=== PATIENT | male | born 1970 | race African-American/Black ===

== ENCOUNTER 2016-11-13 20:46 | Emergency (ER) | payer MEDICAID, OTHER ==
[~2016-11-13] VITALS: Ht 185.4 cm; Wt 113.4 kg
[~2016-11-13 20:46] MED LIST: AMOXICILLIN500 MG ORAL; NORCO1 E1 ORAL
[2016-11-13 21:06] VITALS: BP 138/82
--- NOTE | 2016-11-13 21:41 | Emergency Room Report ---
History of Present Illness General Chief Complaint: General Complaint Source: Patient, Family Member Present Illness HPI This is a 46-year-old male with no past medical history. He presents with chief complaint of generalized weakness and fever. Onset this evening. Had collapse of vomiting. Speckled blood at the end of vomiting. No cough or congestion. No diarrhea. Never had this problem before. Denies any alcohol or drugs use. Allergies: Coded Allergies: IBUPROFEN (Verified Allergy, Unknown, 02/06/16) Patient History Past Medical History: none Past Surgical History: none Pertinent Family History: none Social History: Denies: smoking Immunizations: other Reviewed Nursing Documentation: PMH: Agreed, PSxH: Agreed Nursing Documentation-PMH Hx Hypertension: Yes Hx Asthma: Yes Review of Systems Constitutional: Reports: fever, malaise, weakness Eye: Denies: blurred vision, eye pain ENT: Denies: ear pain, nose congestion, throat swelling Respiratory: Denies: cough, shortness of breath Cardiovascular: Denies: chest pain, palpitations Gastrointestinal: Reports: nausea, vomiting Musculoskeletal: Denies: back pain, joint pain Skin: Denies: rash Neurological: Denies: headache, numbness Endocrine: Denies: increased thirst, increased urine Hematologic/Lymphatic: Denies: easy bruising All Other Systems: negative except mentioned in HPI Physical Exam Vital Signs Date Time Temp Pulse Resp B/P Pulse Ox O2 Delivery O2 Flow Rate FiO2 11/13/16 20:57 99.7 87 26 154/104 100 Room Air vitals with hypertension Sp02 EP Interpretation: reviewed, normal General Appearance: well appearing, no apparent distress, alert, other - ill appearing Head: normocephalic, atraumatic Eyes: bilateral eye EOMI, bilateral eye PERRL ENT: hearing grossly normal, normal pharynx Neck: full range of motion, supple, no meningismus Respiratory: chest non-tender, lungs clear, normal breath sounds Cardiovascular #1: regular rate, rhythm, no murmur Gastrointestinal: normal bowel sounds, non tender, no mass, no organomegaly, no bruit, non-distended Musculoskeletal: back normal, gait/station normal, normal range of motion Psychiatric: mood/affect normal Skin: warm/dry Medical Decision Making Diagnostic Impression: Primary Impression: Pyelonephritis Additional Impressions: Obesity (BMI 30.0-34.9) Amphetamine abuse ER Course Present with fever or back pain and vomiting. According to his , he was diagnosed with urinary tract infection and placed on antibiotics a couple weeks ago. He never filled it. Now with fever and back pain. This is concerning for possible pyelonephritis. Him a dose of antibiotics here. He is feeling better. No percussive tenderness. No midline tenderness. Doubt spinal epidural abscess, or neoplastic process or cauda equina syndrome. Lab Results Impression labs unremarkable EKG Diagnostic Results Rate: normal Rhythm: NSR ST Segments: no acute changes Rhythm Strip Diag. Results EP Interpretation: yes Rate: 65 Rhythm: NSR, no PVC's, no ectopy Chest X-Ray Diagnostic Results EP Interpretation: Yes Findings: no consolidation, no effusion, no pneumothorax, no acute cardiopulmonary disease Number of Views: 1 Last Vital Signs Date Time Temp Pulse Resp B/P Pulse Ox O2 Delivery O2 Flow Rate FiO2 11/13/16 20:57 99.7 87 26 154/104 100 Room Air Status: improved Disposition: HOME, SELF-CARE Condition: Stable Scripts Hydrocodone/Acetaminophen 5-325* (HYDROCODONE/ACETAMINOPHEN 5-325*) 1 Each Tablet 1 TAB ORAL Q6H Y for For Pain, #20 TAB 0 Refills Prov: MOLLY MADRID M.D. 11/13/16 Doxycycline Monohydrate* (DOXYCYCLINE MONOHYDRATE*) 100 Mg Capsule 100 MG ORAL Q12H, #14 CAP 0 Refills Prov: MOLLY MADRID M.D. 11/13/16 Additional Instructions: Followup with your DrChristopher in 2 to 3 days. Return for worsening symptoms. MOLLY MADRID M.D. Nov 13, 2016 21:41
[2016-11-13] MEDS ORDERED: Acetaminophen 500mg (ES) tab ORAL ONE (21:45)
[2016-11-13 21:52] LABS: BASOPHILS % (AUTO) 1.4 % (0.0-2.0); EOSINOPHILS % (AUTO) 0.9 % (0.0-3.0); LYMPHOCYTES % (AUTO) 25.8 % (20.0-45.0); MEAN CORPUSCULAR HEMOGLOBIN 24.7 PG (27.0-31.0); MEAN CORPUSCULAR HGB CONC 30.5 G/DL (32.0-36.0); MEAN CORPUSCULAR VOLUME 81 FL (80-99); MEAN PLATELET VOLUME 8.2 FL (6.5-10.1); MONOCYTES % (AUTO) 9.1 % (1.0-10.0); NEUTROPHILS % (AUTO) 62.8 % (45.0-75.0); PLATELET COUNT 237 K/UL (150-450); RED BLOOD COUNT 5.51 M/UL (4.70-6.10); RED CELL DISTRIBUTION WIDTH 11.7 % (11.6-14.8); WHITE BLOOD COUNT 10.8 K/UL (4.8-10.8)
[2016-11-13 22:15] LABS: ALANINE AMINOTRANSFERASE 12 U/L (3-41); ANION GAP 20 (5-15); ASPARTATE AMINO TRANSFERASE 16 U/L (5-40); CALCIUM 9.1 mg/dL (8.6-10.2); CARBON DIOXIDE 21 mEQ/L (20-30); CHLORIDE 96 mEQ/L (98-107); CREATININE 1.1 mg/dL (0.7-1.2); GLOMERULAR FILTRATION RATE > 60 mL/min (>60); POTASSIUM 3.7 mEQ/L (3.4-4.9); SODIUM 137 mEQ/L (135-145); TOTAL PROTEIN 7.5 g/dL (6.6-8.7)
[2016-11-13 22:16] LABS: ALBUMIN/GLOBULIN RATIO 1.4 (1.0-2.7); HEMOLYSIS 3; LIPASE 40 U/L (< 60)
[2016-11-13 22:19] LABS: REFLEX LACTIC ACID YES OR NO YES
[2016-11-13 22:26] LABS: CKMB < 1.5 ng/mL (< 6.7)
[2016-11-13 23:20] LABS: APPEARANCE,URINE CLOUDY; PROTEIN,URINE NEGATIVE (NEGATIVE)
[2016-11-13 23:21] LABS: KETONES,URINE 3+ (NEGATIVE); LEUKOCYTE ESTERASE ,URINE 3+ (NEGATIVE); NITRITE,URINE NEGATIVE (NEGATIVE); UROBILINOGEN,URINE NORMAL MG/DL (0.0-1.0)
[2016-11-13 23:22] LABS: BACTERIA,URINE MANY /HPF; RBC,URINE 15-20 /HPF (0 - 0); SQUAMOUS EPITHELIAL CELL,UR FEW /LPF (NONE/OCC); WBC,URINE 30-40 /HPF (0 - 0)
[2016-11-13] MEDS ORDERED: DOXYCYCLINE MO100 MG ORAL (23:28)
[2016-11-13] MEDS ORDERED: HYDROCODON-ACE1 EA15 ORAL (23:28)
[2016-11-13] MEDS ORDERED: cefTRIAXone 1 GM in NS 55 ML IVPB ONE (23:30)
[2016-11-13] MEDS ORDERED: HYDROmorphone 1mg/ml Carpuject IVP ONE (23:30)
[2016-11-13 23:35] VITALS: BP 137/81
[2016-11-14 00:07] VITALS: BP 130/66
[2016-11-14 00:08] VITALS: BP 130/66
--- NOTE | 2016-11-14 12:40 | Diagnostic Imaging Report ---
Indication: Chest pain Technique: One view of the chest Comparison: none Findings: Lungs and pleural spaces are clear. Heart size is normal. Impression: No acute process
--- NOTE | 2016-11-21 14:55 | Cardiology Report ---
APPROVED REPORT EKG Measurement Heart [id number] MD 132P41 [id number] Normal sinus rhythm with sinus arrhythmia Normal ECG
== END 2016-11-14 00:08 | disposition home or self-care (01) ==
LOC: EMR 21:39
DX: N12 Tubulo-interstitial nephritis, not specified as acute or chronic (principal); E66.9 Obesity, unspecified; Z68.33 Body mass index [BMI] 33.0-33.9, adult; J45.909 Unspecified asthma, uncomplicated; I10 Essential (primary) hypertension; Z88.6 Allergy status to analgesic agent; F15.10 Other stimulant abuse, uncomplicated
CPT/HCPCS: 36415; 71010; 80053; 80300; 81003; 82550; 82553; 83605; 83690; 85025; 86710; 87040; 87086; 93005; 96361; 96374; 96375; 99284; J0696; J1170; J2405

== ENCOUNTER 2017-02-19 15:58 | Emergency (ER) | payer MEDICAID ==
[~2017-02-19] VITALS: Ht 182.9 cm; Wt 104.3 kg
[~2017-02-19 15:58] MED LIST changes: +DOXYCYCLINE MO100 MG ORAL; +HYDROCODON-ACE1 EA15 ORAL
--- NOTE | 2017-02-19 16:20 | Emergency Room Report ---
History of Present Illness General Chief Complaint: Stroke Symptoms Source: Patient Present Illness HPI Patient's 46 show male presented after having increased right-sided facial numbness and weakness. This began approximately 2 weeks ago. Patient gradual onset of symptoms. Patient having associated tearing as well as difficulty closing his right eye. Patient had prior history of hypertension. He had not been compliant with medications. Allergies: Coded Allergies: IBUPROFEN (Verified Allergy, Unknown, 02/06/16) Patient History Past Medical History: see triage record Reviewed Nursing Documentation: PMH: Agreed, PSxH: Agreed Nursing Documentation-PMH Past Medical History: No History, Except For Hx Hypertension: Yes Hx Asthma: Yes Review of Systems All Other Systems: negative except mentioned in HPI Physical Exam Vital Signs Date Time Temp Pulse Resp B/P Pulse Ox O2 Delivery O2 Flow Rate FiO2 02/19/17 16:08 98.8 135 22 116/73 98 Room Air Sp02 EP Interpretation: reviewed, normal General Appearance: normal inspection, well appearing, no apparent distress, alert, GCS 15, non-toxic Head: atraumatic ENT: normal ENT inspection, hearing grossly normal, normal voice Neck: normal inspection, full range of motion, supple, no bony tend Respiratory: normal inspection, lungs clear, normal breath sounds, no respiratory distress, no retraction, no wheezing Cardiovascular #1: regular rate, rhythm, no edema Gastrointestinal: normal inspection, normal bowel sounds, non tender, soft, no guarding, no hernia Genitourinary: no CVA tenderness Musculoskeletal: normal inspection, back normal, normal range of motion Neurologic: normal inspection, alert, oriented x3, responsive, wet sander III-XII nml as tested, speech normal, motor weakness - right side of face with forehead slight involvement Psychiatric: normal inspection, judgement/insight normal, mood/affect normal Skin: normal inspection, normal color, no rash Medical Decision Making ER Course The patient presented for facial weakness. Differential diagnosis included wasn 't limited to abscess, stroke, intracranial hemorrhage, mass among others.Because of complexity of patient's case laboratory testing and imaging studies were ordered.CT imaging of the head was ordered due to patient's headache onset of symptoms. Last Vital Signs Date Time Temp Pulse Resp B/P Pulse Ox O2 Delivery O2 Flow Rate FiO2 02/19/17 16:08 98.8 135 22 116/73 98 Room Air Leonardo Crawley February 19, 2017 16:20
--- NOTE | 2017-02-19 16:27 | Diagnostic Imaging Report ---
Indication: Right-sided weakness Technique: Contiguous 5 mm thick transaxial imaging of the head obtained in a Siemens Sensation [address] scanner. Soft tissue and bone windows generated. Total Dose length Product (DLP): [address] Dose Index Volume (CTDIvol): 70.38 mGy Comparison: none Findings: The size and configuration of the cortical sulci, basal cisterns, and ventricles are within normal limits for age. There is no mass effect, midline shift, or edema identified. There is no evidence of acute hemorrhage or abnormal intra-axial or extra-axial fluid collections. The bones and soft tissues are unremarkable. Impression: No mass effect, edema or acute bleed. The CT scanner at [facility] is accredited by the [employer] and the scans are performed using dose optimization techniques as appropriate to a performed exam including Automatic Exposure control.
[2017-02-19] MEDS ORDERED: PREDNISONE20 MG ORAL (16:49)
[2017-02-19] MEDS ORDERED: ZOVIRAX800 MG ORAL (16:49)
[2017-02-19 17:36] VITALS: BP_SYST 116; BP_SYST 135; BP_DIAS 73; BP_DIAS 83
--- NOTE | 2017-02-20 14:25 | Cardiology Report ---
APPROVED REPORT EKG Measurement Heart [id number] [place] 130P56 [id number] Normal sinus rhythm Normal ECG
== END 2017-02-19 17:38 | disposition home or self-care (01) ==
LOC: EMR 16:55
DX: R29.810 Facial weakness (principal); I10 Essential (primary) hypertension; Z91.14 Patient's other noncompliance with medication regimen; J45.909 Unspecified asthma, uncomplicated; Z88.6 Allergy status to analgesic agent
CPT/HCPCS: 70450; 82962; 93005; 99284

== ENCOUNTER 2017-07-01 13:53 | Emergency (ER) | payer MEDICAID ==
[~2017-07-01] VITALS: Ht 185.4 cm; Wt 99.8 kg
[~2017-07-01 13:53] MED LIST changes: +PREDNISONE20 MG ORAL; +ZOVIRAX800 MG ORAL
[2017-07-01 13:56] VITALS: BP 158/96
--- NOTE | 2017-07-01 14:09 | Emergency Room Report ---
History of Present Illness General Chief Complaint: Back Pain-No Injury Source: Patient Present Illness HPI \\[facility] [employer] patient walk-in with 6 months right lower back pain. Sharp, worse with walking/moving. "Walk a lot" at work. Wears back brace Tearful, dramatic in ED States was tx for "UTI" in November, but ?if he took Abx Went to additional ER after that Nov visit here and was told then he has UTI as well Denies polyuria, dysuria, urinary discharge, fever/chills, abd pain, nausea/ vomiting Denies recent trauma Allergies: Coded Allergies: IBUPROFEN (Verified Allergy, Unknown, 02/06/16) Patient History Past Medical History: other - chronic LBP Nursing Documentation-PMH Hx Hypertension: Yes Physical Exam Vital Signs Date Time Temp Pulse Resp B/P (MAP) Pulse Ox O2 Delivery O2 Flow Rate FiO2 07/01/17 13:56 97.9 82 20 158/96 99 Room Air Medical Decision Making Diagnostic Impression: Primary Impression: Pyelonephritis ER Course Likely pyelo given right back pain, UA with multiple WBCs, LE chronic back pain but no recent exacerbating activity Analgesia provided and initial dose of Cipro BID for presumed pyelo VSS. Tolerating PO. Not septic/systemically ill currently - does not require IV abx, admission at this time PMD followup in 3-4 days, possible Urology referral if continued symptoms and/ or outpatient sono to check for uro/kidney abnormalities DC home Last Vital Signs Date Time Temp Pulse Resp B/P (MAP) Pulse Ox O2 Delivery O2 Flow Rate FiO2 07/01/17 13:56 97.9 82 20 158/96 99 Room Air Status: improved Disposition: HOME, SELF-CARE Scripts Ciprofloxacin Hcl* (CIPROFLOXACIN HCL*) 500 Mg Tablet 500 MG ORAL Q12H, #13 TAB 0 Refills Prov: TESSA CAMPOS M.D. 07/01/17 TESSA CAMPOS M.D. Jul 01, 2017 14:09
[2017-07-01 14:25] LABS: APPEARANCE,URINE SLIGHTLY CLOUDY; KETONES,URINE NEGATIVE (NEGATIVE); LEUKOCYTE ESTERASE ,URINE 3+ (NEGATIVE); NITRITE,URINE NEGATIVE (NEGATIVE); PH,URINE 8 (4.5-8.0); PROTEIN,URINE NEGATIVE (NEGATIVE); UROBILINOGEN,URINE 4 MG/DL (0.0-1.0)
[2017-07-01 14:35] LABS: AMORPHOUS SEDIMENT,UR MODERATE /LPF; BACTERIA,URINE FEW /HPF; SQUAMOUS EPITHELIAL CELL,UR OCCASIONAL /LPF (NONE/OCC)
[2017-07-01] MEDS ORDERED: CIPROFLOXACIN500 M2 ORAL (14:44)
[2017-07-01] MEDS ORDERED: Ciprofloxacin 500mg tab ORAL ONE (14:45)
[2017-07-01 14:53] VITALS: BP 147/92
== END 2017-07-01 14:53 | disposition home or self-care (01) ==
LOC: EMR 14:25
DX: N12 Tubulo-interstitial nephritis, not specified as acute or chronic (principal); I10 Essential (primary) hypertension; Z88.6 Allergy status to analgesic agent
CPT/HCPCS: 81003; 87086; 99284

== ENCOUNTER 2017-07-28 05:38 | Emergency (ER) | payer MEDICAID ==
[~2017-07-28] VITALS: Ht 185.4 cm; Wt 113.4 kg
[~2017-07-28 05:38] MED LIST changes: +CIPROFLOXACIN500 M2 ORAL
[2017-07-28 05:52] VITALS: BP 183/102
[2017-07-28] MEDS ORDERED: Morphine Sulfate 4mg/ml Inj IVP ONE (06:00)
[2017-07-28] MEDS ORDERED: Famotidine 20 MG/ 2ML VIAL IVP ONE (06:00)
--- NOTE | 2017-07-28 06:01 | Emergency Room Report ---
History of Present Illness General Chief Complaint: Abdominal Pain Source: Patient Present Illness HPI Patient presents with epigastric pain that severe. He has been vomiting. Was drinking coffee and vomited coffee back up but didn't see any coffee grounds or blood. He denies any melena. He's had this problem before. He drank some alcohol before this problem started tonight. Denies pancreatitis. He's had endoscopy done here which revealed gastritis according to him. Pain rated 9/10 , epigastric, some radiation to back, constant. No chest pain, cough, URI, joint pain, rashes, headache, dizziness. Feels hot flashes with vomiting, like fever, no doc temp. Was seen here twice for pyelonephritis once in November and the second time later in the year. It's questionable compliance with antibiotics at that time. Allergies: Coded Allergies: IBUPROFEN (Verified Allergy, Unknown, 02/06/16) Patient History Past Medical History: see triage record, old chart reviewed Social History: Reports: smoking, alcohol use, drug use - THC Social History Narrative With sig other Reviewed Nursing Documentation: PMH: Agreed, PSxH: Agreed Nursing Documentation-PMH Hx Hypertension: Yes Hx Asthma: Yes Review of Systems All Other Systems: negative except mentioned in HPI Physical Exam Vital Signs Date Time Temp Pulse Resp B/P (MAP) Pulse Ox O2 Delivery O2 Flow Rate FiO2 07/28/17 05:43 97.5 71 18 171/84 96 Room Air Sp02 EP Interpretation: reviewed, normal General Appearance: well appearing, GCS 15, mild distress Head: normocephalic Eyes: bilateral eye PERRL, bilateral eye Scleral Injection ENT: moist mucus membranes Neck: supple Respiratory: lungs clear, normal breath sounds Cardiovascular #1: regular rate, rhythm Cardiovascular #2: 2+ radial (R) Gastrointestinal: normal inspection, normal bowel sounds, no mass, non- distended, no guarding, no rebound, tenderness - epigastric Musculoskeletal: back normal, gait/station normal, normal range of motion Neurologic: alert, oriented x3, grossly normal Psychiatric: anxious Skin: normal inspection, warm/dry Medical Decision Making Diagnostic Impression: Primary Impression: Abdominal pain Qualified Codes: R10.13 - Epigastric pain Additional Impression: Vomiting Qualified Codes: R11.2 - Nausea with vomiting, unspecified ER Course Patient presents with epigastric pain after drinking coffee and alcohol. He is vomiting. Differential includes gastritis, GERD, peptic ulcer disease, pancreatitis, acute myocardial infarction amongst others. Evaluation of the EKG , chest x-ray abdominal films and labs. He received IV hydration, Pepcid, Zofran and morphine. EKG is normal sinus rhythm with a normal EKG. Labs with slight leukocytosis, normal lipase, lytes. Slight anemia. Films unremarkable. The patient is improved and is sleeping after medication. Tolerating PO without difficulty. Constellation most c/w gastritis. Patient stable for outpatient observation and treatment. Laboratory Tests Test 07/28/17 06:11 White Blood Count 13.4 K/UL (4.8-10.8) H Red Blood Count 4.45 M/UL (4.70-6.10) L Hemoglobin 11.4 G/DL (14.2-18.0) L Hematocrit 36.5 % (42.0-52.0) L Mean Corpuscular Volume 82 FL (80-99) Mean Corpuscular Hemoglobin 25.7 PG (27.0-31.0) L Mean Corpuscular Hemoglobin Concent 31.3 G/DL (32.0-36.0) L Red Cell Distribution Width 11.5 % (11.6-14.8) L Platelet Count 229 K/UL (150-450) Mean Platelet Volume 8.0 FL (6.5-10.1) Neutrophils (%) (Auto) 73.8 % (45.0-75.0) Lymphocytes (%) (Auto) 19.3 % (20.0-45.0) L Monocytes (%) (Auto) 4.7 % (1.0-10.0) Eosinophils (%) (Auto) 1.2 % (0.0-3.0) Basophils (%) (Auto) 1.0 % (0.0-2.0) Prothrombin Time 9.5 SEC (9.30-11.50) Prothrombin Time INR 0.9 (0.9-1.1) PTT 26 SEC (23-33) Urine Color Pale yellow Urine Appearance Clear Urine pH 7 (4.5-8.0) Urine Specific Lafe 1.015 (1.005-1.035) Urine Protein Negative (NEGATIVE) Urine Glucose (UA) Negative (NEGATIVE) Urine Ketones Negative (NEGATIVE) Urine Occult Blood Negative (NEGATIVE) Urine Nitrite Negative (NEGATIVE) Urine Bilirubin Negative (NEGATIVE) Urine Urobilinogen Normal MG/DL (0.0-1.0) Urine Leukocyte Esterase 1+ (NEGATIVE) H Urine RBC 0-2 /HPF (0 - 0) H Urine WBC 2-4 /HPF (0 - 0) Urine Squamous Epithelial Cells Few /LPF (NONE/OCC) Urine Bacteria Few /HPF (NONE) Urine Mucus Moderate /LPF (NONE/OCC) H Sodium Level 141 MMOL/L (136-145) Potassium Level 4.0 MMOL/L (3.5-5.1) Chloride Level 107 MMOL/L (98-107) Carbon Dioxide Level 23 MMOL/L (21-32) Anion Gap 11 mmol/L (5-15) Blood Urea Nitrogen 14 mg/dL (7-18) Creatinine 0.9 MG/DL (0.55-1.30) Estimate Glomerular Filtration Rate > 60 mL/min (>60) Glucose Level 101 MG/DL (74-106) Calcium Level 9.0 MG/DL (8.5-10.1) Total Bilirubin 0.3 MG/DL (0.2-1.0) Aspartate Amino Transferase (AST) 21 U/L (15-37) Alanine Aminotransferase (ALT) 21 U/L (12-78) Alkaline Phosphatase 61 U/L (46-116) Total Protein 6.7 G/DL (6.4-8.2) Albumin 3.9 G/DL (3.4-5.0) Globulin 2.8 g/dL Albumin/Globulin Ratio 1.4 (1.0-2.7) Lipase 227 U/L (73-393) Urine Opiates Screen Negative (NEGATIVE) Urine Barbiturates Screen Negative (NEGATIVE) Phencyclidine (PCP) Screen Negative (NEGATIVE) Urine Amphetamines Screen Negative (NEGATIVE) Urine Benzodiazepines Screen Negative (NEGATIVE) Urine Cocaine Screen Negative (NEGATIVE) Urine Marijuana (THC) Screen Positive (NEGATIVE) H Serum Alcohol < 3 mg/dL EKG Diagnostic Results Rate: normal Rhythm: NSR ST Segments: no acute changes Rhythm Strip Diag. Results EP Interpretation: yes Rhythm: NSR, no PVC's, no ectopy Chest X-Ray Diagnostic Results Chest X-Ray Diagnostic Results : Chest X-Ray Ordered: Yes # of Views/Limited/Complete: 1 View Indication: Other EP Interpretation: Yes Interpretation: no consolidation, no effusion, no pneumothorax, no acute cardiopulmonary disease Impression: No acute disease Electronically Signed by: Yefri Dickinson MD Other X-Ray Diagnostic Results Other X-Ray Diagnostic Results : X-Ray ordered: abd # of Views/Limited Vs Complete: 1 View Indication: Pain EP Interpretation: Yes Interpretation: nonspecific bowel gas, no sbo, other - no masses Impression: Other Electronically Signed by: Yefri Dickinson MD Last Vital Signs Date Time Temp Pulse Resp B/P (MAP) Pulse Ox O2 Delivery O2 Flow Rate FiO2 07/28/17 09:29 98.0 61 17 142/95 100 Room Air Status: improved Disposition: HOME, SELF-CARE Condition: Improved Scripts Mag Hydrox/Al Hydrox/Simeth (MAALOX MAXIMUM STRENGTH SUSP) 355 Ml Oral.susp 30 ML PO Q6HR, #240 ML 1 Refill Prov: Yefri Dickinson M.D. 07/28/17 Acetaminophen (Tylenol) 325 Mg Tablet 650 MG ORAL Q6H Y for Prn Pain/Headache/Temp > 101, #10 TAB 0 Refills Prov: Yefri Dickinson M.D. 07/28/17 Hydrocodone Bit/Acetaminophen 5-325* (NORCO 5-325*) 1 Each Tablet 1 TAB ORAL Q6H Y for For Pain, #10 TAB 0 Refills Prov: Yefri Dickinson M.D. 07/28/17 Famotidine (PEPCID) 20 Mg Tablet 20 MG ORAL DAILY, #30 TAB 0 Refills Prov: Yefri Dickinson M.D. 07/28/17 Yefri Dickinson M.D. Jul 28, 2017 06:01
[2017-07-28 06:36] LABS: APPEARANCE,URINE CLEAR; KETONES,URINE NEGATIVE (NEGATIVE); LEUKOCYTE ESTERASE ,URINE 1+ (NEGATIVE); NITRITE,URINE NEGATIVE (NEGATIVE); PH,URINE 7 (4.5-8.0); PROTEIN,URINE NEGATIVE (NEGATIVE); UROBILINOGEN,URINE NORMAL MG/DL (0.0-1.0)
[2017-07-28 06:51] LABS: BACTERIA,URINE FEW /HPF; RBC,URINE 0-2 /HPF (0 - 0); SQUAMOUS EPITHELIAL CELL,UR FEW /LPF (NONE/OCC)
[2017-07-28 06:52] LABS: INR 0.9 (0.9-1.1); MUCUS,URINE MODERATE /LPF (NONE/OCC); PROTHROMBIN TIME 9.5 SEC (9.30-11.50)
[2017-07-28 07:08] LABS: EOSINOPHILS % (AUTO) 1.2 % (0.0-3.0); LYMPHOCYTES % (AUTO) 19.3 % (20.0-45.0); MEAN CORPUSCULAR HEMOGLOBIN 25.7 PG (27.0-31.0); MEAN CORPUSCULAR HGB CONC 31.3 G/DL (32.0-36.0); MEAN CORPUSCULAR VOLUME 82 FL (80-99); MONOCYTES % (AUTO) 4.7 % (1.0-10.0); NEUTROPHILS % (AUTO) 73.8 % (45.0-75.0); PLATELET COUNT 229 K/UL (150-450); RED BLOOD COUNT 4.45 M/UL (4.70-6.10); RED CELL DISTRIBUTION WIDTH 11.5 % (11.6-14.8); WHITE BLOOD COUNT 13.4 K/UL (4.8-10.8)
[2017-07-28 07:42] VITALS: BP 139/94
[2017-07-28 07:48] LABS: ANION GAP 11 mmol/L (5-15); CARBON DIOXIDE 23 MMOL/L (21-32); CHLORIDE 107 MMOL/L (98-107); CREATININE 0.9 MG/DL (0.55-1.30); GLOMERULAR FILTRATION RATE > 60 mL/min (>60); SODIUM 141 MMOL/L (136-145)
[2017-07-28 07:49] LABS: ALANINE AMINOTRANSFERASE 21 U/L (12-78); ALBUMIN/GLOBULIN RATIO 1.4 (1.0-2.7); ASPARTATE AMINO TRANSFERASE 21 U/L (15-37); LIPASE 227 U/L (73-393); TOTAL PROTEIN 6.7 G/DL (6.4-8.2)
[2017-07-28] MEDS ORDERED: TYLENOL325 MG ORAL (08:30)
[2017-07-28] MEDS ORDERED: MAALOX MAXIMUM355 M1 PO (08:30)
[2017-07-28] MEDS ORDERED: NORCO 5-325 TA1 EACH ORAL (08:30)
[2017-07-28] MEDS ORDERED: PEPCID20 MG ORAL (08:30)
[2017-07-28 09:29] VITALS: BP 142/95
--- NOTE | 2017-07-28 10:46 | Diagnostic Imaging Report ---
Indication: Dyspnea Comparison: 11/13/16 A single view chest radiograph was obtained. Findings: Cardiomediastinal appearance is within normal limits for age. Pulmonary vascularity is appropriate. The diaphragmatic contour is smooth and costophrenic angles are sharp. No pleural effusions are identified. The bones are unremarkable. Impression: No acute findings
--- NOTE | 2017-07-28 10:46 | Diagnostic Imaging Report ---
Indication: Abdominal pain Comparison: None Single view of the abdomen obtained Findings: Bowel gas pattern is nonspecific. No mass, ectopic calcifications, or abnormal gas collections are identified. There are surgical clips in the right lower quadrant of abdomen. The bones are unremarkable. Impression: No acute findings
--- NOTE | 2017-07-29 17:22 | Cardiology Report ---
APPROVED REPORT EKG Measurement Heart [id number] CT 142P59 [id number] Normal sinus rhythm Normal ECG
== END 2017-07-28 09:30 | disposition home or self-care (01) ==
LOC: EMR 06:24
DX: R10.13 Epigastric pain (principal); R11.10 Vomiting, unspecified; Z88.6 Allergy status to analgesic agent; I10 Essential (primary) hypertension; J45.909 Unspecified asthma, uncomplicated
CPT/HCPCS: 36415; 71010; 74000; 80053; 80307; 80329; 81003; 83690; 85025; 85610; 85730; 93005; 96361; 96374; 96375; 99284; J2270; J2405; S0028